=== PATIENT | male | born 1940 | race Caucasian/White ===

== ENCOUNTER 2017-11-08 19:35 | Day surgery (SDC) | payer MEDICARE, BC ==
[~2017-11-08] VITALS: Ht 177.8 cm; Wt 88.9 kg
--- NOTE | ~2017-11-08 | HP ---
PATIENT: KORIN JIANG MEDICAL RECORD: [id number] ACCOUNT: [id number] LOCATION:D.MS [id number] : 44 ADMISSION DATE: 11/08/17 PCP: JAMES NAVA MD HISTORY AND PHYSICAL EXAMINATION Shortstay Summary DATE OF OBSERVATION: 11/08/2017 DATE OF DISCHARGE: 11/09/2017 HISTORY: This patient was admitted with oropharyngeal and esophageal dysphagia. He has had difficulty before and saw Dr. Pineda in the past. He felt something lodging in his throat. He was unable to hold down his own saliva. He was brought to the ER and then into the GI lab where he underwent EGD with removal of foreign body. There were findings of a large food impaction immediately past the oropharyngeal area and lodged in the upper esophageal sphincter. There was marked narrowing with irregularity in the upper esophageal sphincter, this is questionable as to whether there is a cervical spinal spur protruding into the upper esophagus or something else. Also, found severe inflammation in the upper esophagus and this was biopsied. The patient was started on Protonix bolus, then a Protonix drip, kept n.p.o. tonight except for ice chips and is getting a CT of the neck today looking for cervical spurs, possible mass, etc. PAST MEDICAL HISTORY: Hypertension, hyperlipidemia, enlarged prostate. He has had a DVT in the past, compression fracture at T12. PAST SURGICAL HISTORY: Vertebroplasty at T12, had an EGD by Dr. Pineda last year and a colonoscopy by Dr. Pineda last year. MEDICATIONS: Lovastatin, losartan, Caltrate D, and aspirin. ALLERGIES: CIPROFLOXACIN. SOCIAL HISTORY: He is retired, . FAMILY HISTORY: Noncontributory. REVIEW OF SYSTEMS: GENERAL: No major weight changes. HEENT: No particular sinus or allergy problems. RESPIRATORY: No history of emphysema or asthma. CARDIAC: No known coronary disease. GASTROINTESTINAL: See above history. GENITOURINARY: He has had some BPH. MUSCULOSKELETAL: He had a compression fracture noted and vertebroplasty. NEUROLOGIC: No migraines or seizures. PSYCHIATRIC: Denies depression or melancholia. PHYSICAL EXAMINATION: VITAL SIGNS: Today, temperature 99.1, pulse 81, respirations 20, blood pressure 106/69, O2 sat 96%. GENERAL: He is awake, alert, he does not appear in acute distress. He is feeling much better since he has had the food bolus pushed down. HISTORY AND PHYSICAL [id number] KORIN JIANG HEENT: Unremarkable. NECK: Supple. HEART: Regular rate and rhythm without murmur. LUNGS: Clear. ABDOMEN: Soft. EXTREMITIES: No edema. LABORATORY DATA: CBC is normal. Basic metabolic panel is unremarkable. ASSESSMENT: 1. Esophagitis, severe. 2. Large food impaction. PLAN: I will follow up with results of the CT of the neck. Continue usual medications and GI meds and diet per GI. The patient will follow up with me in a couple of weeks. Follow up with GI as they wish. TRANSINT:[id number] Voice Confirmation ID: [id number] DOCUMENT ID: [id number] JAMES NAVA MD at 1008 CC: [id number] DICTATION DATE: 11/09/17 1139 TAPPER BIT: 11/09/17 1234 DIS IN 11/09/17 [facility] [address] [place] [address]
[2017-11-08 14:39] VITALS: BP 162/84; BMI 28.1
[~2017-11-08 19:35] MED LIST: ASPIRIN81 MG PO; COZAAR50 MG PO; LOVASTATIN20 MG PO; OMEPRAZOLE40 MG PO
[2017-11-08 21:45] VITALS: BP 161/79; BMI 28.1
[2017-11-08 23:12] VITALS: BP 161/79
[2017-11-09 04:44] VITALS: BP 154/73
[2017-11-09 05:41] LABS: BASOPHILS 0.4 % (0-2); EOSINOPHILS 3.1 % (0-7); HEMATOCRIT 39.4 % (42.0-54.0); HEMOGLOBIN 13.7 g/dL (13.5-17.5); IMMATURE GRANULOCYTES 0.4 % (0-5); LYMPHOCYTES 16.9 % (15-50); MCH 32.9 pg (26.0-34.0); MCHC 34.8 g/dL (31.0-37.0); MCV 94.5 fL (80.0-100.0); MEAN PLATELET VOLUME 8.7 fL (7.4-10.4); MONOCYTES 16.8 % (2-11); NEUTROPHILS 62.4 % (40-80); PLATELET COUNT 231 10x3/uL (130-400); RBC 4.17 10x6/uL (4.20-6.10); RDW 13.5 % (11.5-14.5); WBC 7.5 10x3/uL (4.8-10.8)
[2017-11-09 06:02] LABS: CALC OSMOLALITY 276 mosm/kg (275-300); CALCIUM 8.5 mg/dL (8.5-10.1); CARBON DIOXIDE 23.4 mmol/L (21.0-32.0); CHLORIDE - SERUM 107 mmol/L (98-107); GLUCOSE 97 mg/dL (74-106); POTASSIUM - SERUM 3.8 mmol/L (3.5-5.1); SODIUM 140 mmol/L (136-145); UREA NITROGEN 8 mg/dL (7-18); eGFR NON AFRICAN AMERICAN 77 mL/min (90-120)
[2017-11-09 08:22] VITALS: BP 106/69
[2017-11-09 10:50] VITALS: Ht 177.8 cm; Wt 88.9 kg
[2017-11-09 12:42] VITALS: BP 149/80
== END 2017-11-09 14:54 | disposition home or self-care (01) ==
LOC: OBSVTIME → D.MS 19:35 → D.OPS 19:35 → D.MS 19:35 → OBSVTIME 19:35 → D.OPS 11-09 14:54 → D.MS 11-09 14:54
PROVIDERS: Internal Medicine Gastroenterology
DX: R13.12 Dysphagia, oropharyngeal phase (principal); I10 Essential (primary) hypertension; K21.9 Gastro-esophageal reflux disease without esophagitis; E78.5 Hyperlipidemia, unspecified; K29.70 Gastritis, unspecified, without bleeding; K29.80 Duodenitis without bleeding; T18.0XXA Foreign body in mouth, initial encounter; T17.228A Food in pharynx causing other injury, initial encounter; Z01.812 Encounter for preprocedural laboratory examination

== ENCOUNTER 2019-08-07 07:38 | Outpatient (CLI) | payer MEDICARE, BC ==
[~2019-08-07] VITALS: Ht 175.3 cm; Wt 78.5 kg
--- NOTE | ~2019-08-07 | HEMODYNAMI ---
PATIENT:KORIN JIANG MEDICAL RECORD: [id number] : 44 LOCATION:D.CAT ADMISSION DATE: 08/07/19 Generatedon:08/07/201910:39 Patient name: KORIN JIANG Patient #: [id number] SSN: [id number] : 1940 Date of study: 08/07/2019 Page: Of Hemodynamic Procedure Report Patient Data Patient Demographics Procedure consent was obtained First Name: KORIN Gender: Male Last Name: APOLINAR : 1940 Patient #: [id number] Age: 79 year(s) Race: SSN: [id number] Additional ID: [id number] Contact details Address: [address] [place] [address] State: [place] City: [facility] Zip code: [address] Past Medical History Allergies Allergen Reaction Date Comments Reported Other allergy 08/07/2019 CIPRO Admission Admission Data Admission Date: 08/07/2019 Admission Time: 7:38 Arrival Date: 08/07/2019 Arrival Time: 0:00 Admit Source: Other Insurance Payor: Medicare [facility] #: [id number] Height (in.): 69 BSA: 1.94 (m2) Height (cm.): 175.26 BMI: 25.4 (kg/m2) Weight (lbs.): 172 Weight (kg.): 78.02 Lab Results Lab Result Date: 08/07/2019 Lab Result Time: 0:00 Biochemistry Name Units Result Min Max BUN mg/dl 12 --(-*--)-- 7 18 Creatinine mg/dl 1.1 --(--*-)-- 0.6 1.3 eGFR ml/min 69 *-(----)-- 90 120 NONAFRICAN CBC Name Units Result Min Max Hematocrit % 42 --(*---)-- 42 54 Hemoglobin g/dl 14.2 --(*---)-- 13.5 17.5 Procedure Procedure Types Cath Procedure Diagnostic Procedure [facility] w/Coronaries Sedation Charges Moderate Sedation up to 15 minutes Procedure Description Procedure Date Procedure Date: 08/07/2019 Procedure Start Time: 10:23 Procedure End Time: 10:35 Procedure Staff Name Function Wilfred Montenegro MD Performing Physician Adriane Zafar RT Monitor Damaris Llamas RN Nurse Abiola Jovel RT Scrub Susana Ramos RN Monitor Procedure Data Cath Procedure Fluoroscopy Diagnostic fluoroscopy Total fluoroscopy Time: 3.3 time: 3.3 min min Diagnostic fluoroscopy Total fluoroscopy dose: 541 dose: 541 mGy mGy Contrast Material Contrast Material Type Amount (ml) Isovue 300 48 Entry Location Entry Primary Successful Side Size Upsize Upsize Entry Closure Haas ccessful Closure Location (Fr) 1 (Fr) 2 (Fr) Remarks Device Remarks Radial Right 6 Fr Manual artery Short Compression Estimated blood loss: 5 ml Diagnostic catheters Device Type Used For End Catheter Placement DIAGNOSTIC Vickey 110cm Procedure 5Fr catheter ([id number]) DIAGNOSTIC [place] 110cm 5 Procedure Fr catheter ([id number]) Procedure Complications No complications Procedure Medications Medication Administration Route Dosage Oxygen etCO2 Nasal cannula 2 l/min Lidocaine 2% added to field 20 Heparin Flush Bag added to field 2 bags (1000units/500ml NS) 0.9% NaCl I.V. 100 ml/hr Versed I.V. 2 mg Fentanyl I.V. 50 mcg Versed I.V. 1 mg Fentanyl I.V. 50 mcg Radial Cocktail I.A. 1 syringe (Verapamil 2mg/Nitro 400mcg/Heparin 1500units) Versed I.V. 1 mg Hemodynamics Rest BSA: 1.94 (m2) HGB: 14.2 (g/dl) O2 Consumption: Estimated: 219.07 (ml/min) O2 Co nsumption indexed: Estimated:112.92 (ml/min/m) Heart Rate: 65 (bpm) Pressure Samples Time Site Value (mmHg) Purpose Heart Use Rate(bpm) 10:26 LV 87/4,13 Snapshot 65 Gradients Valve Time Site Site Mean SEP/DFP Peak To Heart Use 1 2 (mmHg) (sec/min) Peak Rate (mmHg) (bpm) Aortic 10:27 LV AO 64 Snapshots Pre Cath Intra NCS Post Cath Vital Signs Time Heart Resp SPO2 etCO2 NIBP (mmHg) Rhythm Pain Sedation Rate (ipm) (%) (mmHg) Status Level (bpm) 10:08:54 67 18 98 0 138/78(111) NSR 0 (11) 10(A) , No pain 10:13:00 71 22 100 0 134/96(118) NSR 0 (11) 10(A) , No pain 10:17:12 66 16 99 0 114/71(105) NSR 0 (11) 10(A) , No pain 10:21:19 63 17 97 0 110/62(92) NSR 0 (11) 10(A) , No pain 10:25:27 62 16 97 0 104/60(88) NSR 0 (11) 9(A) , No pain 10:29:35 68 17 94 0 87/51(64) NSR 0 (11) 9(A) , No pain 10:33:32 64 16 94 0 97/61(78) NSR 0 (11) 10(A) , No pain Medications Time Medication Route Dose Verified Delivered Reason Notes Effectiveness by by 10:08:02 Oxygen etCO2 2 l/min Wilfred Buffie used for Nasal Lan Llamas RN procedure cannula 10:08:08 Lidocaine 2% added 20ml Wilfred Wilfred for local to vial Lan Montenegro MD anesthetic field 10:08:14 Heparin Flush added 2 bags Wilfred Wilfred used for Bag to Lan Montenegro MD procedure (1000units/500ml field NS) 10:08:22 0.9% NaCl I.V. 100 Wilfred Buffie Per ml/hr Lan Llamas RN physician 10:19:57 Versed I.V. 2 mg Wilfred Buffie for sedation Lan Llamas RN 10:20:03 Fentanyl I.V. 50 mcg Wilfred Buffie for sedation Lan Llamas RN 10:24:11 Versed I.V. 1 mg Wilfred Buffie for sedation Lan Llamas RN 10:24:15 Fentanyl I.V. 50 mcg Wilfred Buffie for sedation Lan Llamas RN 10:25:11 Radial Cocktail I.A. 1 Wilfred Wilfred for (Verapamil syringe Lan Montenegro MD vasodilation 2mg/Nitro 400mcg/Heparin 1500units) 10:29:39 Versed I.V. 1 mg Wilfred Wilfred for sedation Lan Montenegro MD Procedure Log Time Note 9:38:07 Informed consent obtained and on chart 9:39:29 Arrival Date: 08/07/2019 12:00:00 AM 9:39:30 Admit Source: Other 9:39:34 Insurance Payor : Medicare 9:39:57 Patient Height : 69 inches 9:40:01 Patient Weight : 172 lbs 9:40:14 Diagnostic Cath Status : Elective 9::52 Lab Result : BUN 12 mg/dl 9::52 Lab Result : Hemoglobin 14.2 g/dl 9::52 Lab Result : eGFR NONAFRICAN 69 ml/min 9:41:52 Lab Result : Creatinine 1.1 mg/dl 9:41:52 Lab Result : Hematocrit 42 % 9:42:03 ACC Patient presents with Stable Angina CCS Anginal Class 2--Slight limitation of ordinary activity. 9:42:07 Procedure Status Elective Heart Cath (OP). 9:42:10 Time tracking: Regular hours (M-F 7:00 - 5:00) 9:42:15 Plan of Care:Hemodynamics will remain stable., Cardiac rhythm will remain stable., Comfort level will be maintained., Respiratory function will remain adequate., Patient/ family verbilizes understanding of procedure., Procedure tolerated without complication., Recovers from procedure without complications.. 9:43:07 Lab results completed and on chart. 9:43:08 Alarms reviewed by R. N. 9:43:09 Sharps counted by scrub and verified by R.N. 9:46:54 H&P Date Dictated: 08/05/2019 Within 30 days and on chart.. 9:46:55 Pre-procedure instructions explained to patient. 9:46:56 Pre-op teaching completed and patient verbalized understanding. 9:46:58 Patient NPO since Midnight. 9:47:10 Patient allergic to Other allergyCIPRO 9:47:20 Damaris Llamas RN sent for patient. Start room use. 9:55:46 Patient received from Pre/Post Procedure Room to CCL 2 Alert and oriented. Tansferred to table in Supine position. 9:55:52 Warm blankets applied, and bridger hugger turned on for patient comfort. 9:55:53 Correct patient and procedure confirmed by team. 9:55:53 ECG and BP/O2 sat monitors applied to patient. 9:55:58 Is the patient allergic to Iodine/contrast media? No. 9:56:00 Was the patient premedicated? N/A 9:56:03 Is patient on blood thinner?No 9:56:05 Patient diabetic? No. 9:56:08 If diabetic: On Metformin? N/A 9:56:11 ----Pre-sedation anethsthesia assessment.---- 9:56:16 Previous problem with sedation/anesthesia? No ? 9:56:17 Snore? Yes 9:56:18 Sleep apnea? No 9:56:19 Deviated septum? No 9:56:21 Opens mouth fully? Yes 9:56:22 Sticks out tongue? Yes 9:56:24 Airway obstruction? No ? 9:56:26 Dentures? No ? 10:07:51 Vital chart was started 10:08:02 Oxygen 2 l/min etCO2 Nasal cannula was administered by Damaris Llamas RN; used for procedure; Verbal order read back and verified. 10:08:08 Lidocaine 2% 20ml vial added to field was administered by Wilfred Montenegro MD; for local anesthetic; Verbal order read back and verified. 10:08:13 Pre procedure: right radial pulse 2+ Normal; easily identifiable; not easily obliterated 10:08:14 Heparin Flush Bag (1000units/500ml NS) 2 bags added to field was administered by Wilfred Montenegro MD; used for procedure; Verbal order read back and verified. 10:08:16 Modified Ritesh's test Radial < 7 seconds 10:08:19 Patient pain scale 0/10 ?. 10:08:22 0.9% NaCl 100 ml/hr I.V. was administered by Damaris Llamas RN; Per physician; Verbal order read back and verified. 10:08:38 IV patent on arrival in left antecubital with 0.9% NaCl at [facility]. 10:09:03 Stress Test: no; N/A ? 10:11:02 Risk of Mortality: 0.4 10:11:05 Risk of blood transfusion: 1.4 10:11:09 Risk of PRICILLA: 1.3 10:11:19 Right Radial & Right Groin area was prepped with chlora-prep and draped in sterile fashion 10:19:23 Use device set Radial Dx or PCI 10:19:24 ACIST Syringe (69583) opened to sterile field. 10:19:25 Medline Cath Pack ([id number]) opened to sterile field. 10:19:25 Bag Decanter () opened to sterile field. 10:19:25 ACIST Hand Control (15189) opened to sterile field. 10:19:26 ACIST Manifold (61370) opened to sterile field. 10:19:28 MBrace Wrist Support ([id number]) opened to sterile field. 10:19:29 NEEDLE Cook 21G 4cm Radial (C80655) opened to sterile field. 10:19:32 EMERALD Guide Wire (505-386) opened to sterile field. 10:19:34 SHEATH 6FR RAIN ([id number]) opened to sterile field. 10:19:46 --------ALL STOP TIME OUT------ 10:19:46 Final Timeout: patient, procedure, and site verified with staff and physician. All members of the team are in agreement. 10:19:48 Right Radial & Right Groin site verified by team. 10:19:52 Fire Safety Assessment: A--An alcohol-based skin anteseptic being used preoperatively., C--Open oxygen or nitrous oxide is being used., D--An ESU, laser, or fiber-optic light is being used. 10:19:57 Versed 2 mg I.V. was administered by Damaris Llamas RN; for sedation; Verbal order read back and verified. 10:19:59 Physical assessment completed. ASA score P 3 - A patient with severe systemic disease as per Wilfred Montenegro MD. 10:20:03 Fentanyl 50 mcg I.V. was administered by Damaris Llamas RN; for sedation; Verbal order read back and verified. 10:20:05 2) 60-89 Mildly reduced kidney function, and other findings (as for stage 1) point to kidney disease. 10:20:14 Maximum allowable contrast dose (3.7 X eGFR X 0.75)191 ml. 10:20:30 Sedation plan: IV Moderate Sedation Medication:Versed, Fentanyl 10:22:52 Procedure started. 10:22:53 Full Disclosure recording started 10:23:00 Local anesthetic to right radial artery with Lidocaine 2% by Wilfred Montenegro MD.INITIAL ACCESS ONLY 10:24:11 Versed 1 mg I.V. was administered by Damaris Llamas RN; for sedation; Verbal order read back and verified. 10:24:15 Fentanyl 50 mcg I.V. was administered by Damaris Llamas RN; for sedation; Verbal order read back and verified. 10:24:15 A 6 Fr Short sheath was inserted into the Right Radial artery 10:24:30 A DIAGNOSTIC Vickey 110cm 5Fr catheter ([id number]) was advanced over the wire and used for Procedure. 10:25:11 Radial Cocktail (Verapamil 2mg/Nitro 400mcg/Heparin 1500units) 1 syringe I.A. was administered by Wilfred Montenegro MD; for vasodilation; Verbal order read back and verified. 10:26:47 LV gram done using SWAN 10::51 EF : 55 % 10::52 LV hemodynamics recorded. 10:27:00 Injector settings: Ml/sec: 10, Volume: 20, 10::27 Catheter exchanged over wire. 10:29:06 A DIAGNOSTIC [place] 110cm 5 Fr catheter ([id number]) was advanced over the wire and used for Procedure. 10:29:39 Versed 1 mg I.V. was administered by Wilfred Montenegro MD; for sedation; Verbal order read back and verified. 10:30:07 LCA angiography performed. 10:31:19 RCA angiography performed. 10:31:31 ACCDominant side:Right 10:32:31 Catheter removed. 10:32:40 ZEPHYR REGULAR TR BAND (063925) opened to sterile field. 10:32:50 Sheath removed intact; hemostasis achieved with Manual Compression to the Right Radial artery. 10:33:12 Procedure ended.(Physican Out) 10:33:24 Fluoroscopy time 03.30 minutes. 10:33:28 Fluoroscopy dose: 541 mGy 10:33:28 Flurop Dose total: 541 10:33:43 Dose Area Product 24526 mGy/cm. 10:34:00 Contrast amount:Isovue 300 48ml. 10:34:03 Maximum allowable dose exceeded? No. 10:34:04 Sharps counted by scrub and verified by R.N. 10:34:08 [place] band inflated with 10cc of air. 10:34:10 Insertion/operative site no bleeding no hematoma. 10:34:32 Post right radial artery:stable, soft, clean and dry 10:34:35 Post Procedure Pulses reassessed and unchanged 10:34:40 Post procedure: right radial pulse 2+ Normal; easily identifiable; not easily obliterated. 10:34:43 Post-procedure physical assessment completed. ASA score P 3 - A patient with severe systemic disease as per Wilfred Montenegro MD. 10:34:46 Post procedure rhythm: unchanged. 10:34:49 Estimated blood loss: 5 ml 10:34:51 Post procedure instruction explained to patient.Patient verbalizes understanding. 10:34:52 Patient needs reinforcement of post procedure teaching. 10:35:23 Procedure type changed to Cath procedure, Diagnostic procedure, LHC, C w/Coronaries, Sedation Charges, Moderate Sedation up to 15 minutes 10:35:25 Procedure and supply charges have been captured, reviewed, submitted and are correct. 10:35:29 Procedure Complication : No complications 10:35:31 Vital chart was stopped 10:35:37 [facility] Findings: MVD- MD will discuss options w/ pt 10:35:39 Operative report dictated upon procedure completion. 10:35:40 See physician's report for complete and final results. 10:35:42 Report given to Pre/Post Procedure Room. 10:35:47 Patient transfered to Pre/Post Procedure Room with Stretcher. 10:35:49 Procedure ended. 10:35:49 Full Disclosure recording stopped 10:36:04 End room use (Document Last) 10:36:24 End room use (Document Last) Device Usage Item Name Manufacture Quantity Catalog Hospital Part Current Minima l Lot# / Number Charge Number Stock Stock Serial# Code ACIST Acist 1 23390 730956 [id number] [id number] 20 Syringe Medical (97419) Systems Inc Medline Medline 1 [id number] 058485 22011 263628 5 Cath Pack ([id number]) Bag Microtek 1 959005 43945 205915 5 Decanter Medical Inc. () ACIST Hand Acist 1 70872 681046 500276 009681 5 Control Medical (32271) Systems Inc ACIST Acist 1 66316 392150 144888 400510 5 Manifold Medical (54666) Systems Inc MBrace Advanced 1 140-0250-00 835390 87807 646377 5 Wrist Vascular Support Dynamics ([id number]) NEEDLE [employer] Cook Medical 1 M56574 909748 138789 467347 5 21G 4cm Radial (H54056) EMERALD Cardinal 1 502-455 066664 791060 260978 5 Guide Wire Health (502-244) SHEATH 6FR Cardinal 1 [id number] 685687 6320016 792025 5 RAIN Health (6852647) DIAGNOSTIC Terumo 1 40-5023 565292 478098 453921 5 Vic[place] 110cm 5Fr catheter (121994) DIAGNOSTIC Terumo 1 40-5013 902460 861188 021286 5 [place] 110cm 5 Fr catheter (183789) ZEPHYR Cardinal 1 108254 126631 2406051 849710 5 REGULAR TR Health BAND (627407) Signature Audit [place] Stage Time Signature Unsigned Intra-Procedure 08/07/2019 Damaris Llamas RN 10:36:24 AM Intra-Procedure 08/07/2019 Susana Ramos 10:37:53 AM RN Intra-Procedure 08/07/2019 Wilfred Montenegro MD 10:39:05 AM Signatures Performing Physician : Signature : Wilfred Montenegro MD Date : Time : Monitor : Adriane Zafar Signature : RT Date : Time : Nurse : Damaris Llamas RN Signature : Date : Time : Monitor : Susana Ramos Signature : RN Date : Time : [facility] [address] [place] [address]
[2019-08-07] MEDS ORDERED: FLOMAX0.4 MG PO (08:35)
[2019-08-07] MEDS ORDERED: VIAGRA25 MG PO (08:36)
[2019-08-07] MEDS ORDERED: SUPER B COMPLE1 EAC1 PO (08:37)
[2019-08-07 09:12] VITALS: BP 141/70; Ht 175.3 cm; Wt 78.5 kg
[2019-08-07 09:17] LABS: BASOPHILS 0.5 % (0-2); EOSINOPHILS 2.6 % (0-7); HEMOGLOBIN 14.2 g/dL (13.5-17.5); IMMATURE GRANULOCYTES 0.3 % (0-5); LYMPHOCYTES 9.8 % (15-50); MCHC 33.8 g/dL (31.0-37.0); MCV 91.7 fL (80.0-100.0); MEAN PLATELET VOLUME 8.1 fL (7.4-10.4); MONOCYTES 13.2 % (2-11); NEUTROPHILS 73.6 % (40-80); PLATELET COUNT 207 10x3/uL (130-400); RBC 4.58 10x6/uL (4.20-6.10); RDW 14.1 % (11.5-14.5); WBC 6.6 10x3/uL (4.8-10.8)
[2019-08-07 09:39] LABS: ANION GAP 11.3 mmol/L (8-16); CALCIUM 9.2 mg/dL (8.5-10.1); CARBON DIOXIDE 26.5 mmol/L (21.0-32.0); CHOL - HDL RATIO 2.9 ratio (2.3-4.9); CREATININE - SERUM 1.1 mg/dL (0.6-1.3); LDL-HDL RATIO 1.7 ratio (1.5-3.5); POTASSIUM - SERUM 3.8 mmol/L (3.5-5.1)
--- NOTE | 2019-08-07 10:45 | NUR ---
PT REC'D TO ROOM 8 VIA STRETCHER FROM [place] LAYER. MONITORS ESTAB. PT DROWSY, AT BS. SEE ASBESTOS COVERER.
--- NOTE | 2019-08-07 11:00 | NUR ---
R WRIST SITE C/D/I, NO S/S BLEEDING OR SWELLING. PULSES PALP AND BRISK CAP REFILL. VSS. ALARMS ON AND C/L IN REACH.
--- NOTE | 2019-08-07 11:30 | NUR ---
VSS. R WRIST SITE C/D/I. NO S/S BLEEDING. PT EATING SANDWICH, AT BS. ALARMS ON AND C/L IN REACH.
--- NOTE | 2019-08-07 11:45 | NUR ---
VSS, R WRIST SITE C/D/I. 5 CC AIR REMOVED FROM Z BAND WITH NO S/S BLEEDING. PT VOIDED 500CC CLEAR, YELLOW URINE IN URINAL. AT BS.
--- NOTE | 2019-08-07 12:15 | NUR ---
ALL AIR REMOVED FROM Z BAND, NO S/S BLEEDING. VSS.
--- NOTE | 2019-08-07 12:45 | NUR ---
ALL D/C INSTRUCTIONS REVIEWED WITH PT AND HIS , INCLUDING RESTRICTIONS, MEDS AND F/U APPT.. PT VERBALIZES UNDERSTANDING. PIV D/C'D INTACT, DSG APPLIED AND PT ALLOWED UP TO GET DRESSED WITH ASSISTING.
--- NOTE | 2019-08-07 13:00 | NUR ---
Z BAND OFF, NO S/S BLEEDING - DSG APPLIED AND ARM BOARD IN PLACE. PT D/C'D VIA WC TO PRIVATE VEHICLE WITH .
== END 2019-08-07 13:00 | disposition home or self-care (01) ==
LOC: D.CATH 07:38
PROVIDERS: ATTEND Internal Medicine Cardiovascular Disease
DX: I25.10 Atherosclerotic heart disease of native coronary artery without angina pectoris (principal); R94.39 Abnormal result of other cardiovascular function study; I10 Essential (primary) hypertension; E78.5 Hyperlipidemia, unspecified; K21.9 Gastro-esophageal reflux disease without esophagitis